=== PATIENT | female | born 1995 | race Caucasian/White ===

== ENCOUNTER 2021-10-23 17:35 | Emergency (ER) | payer MEDICAID ==
[~2021-10-23] VITALS: Ht 149.9 cm; Wt 82.0 kg
[2021-10-23] MEDS ORDERED: ONDANSETRON 4MG ODT PO ONE (22:15)
[2021-10-23 23:30] VITALS: BP 120/85
[2021-10-23] MEDS ORDERED: ONDA4TAB11 PO (23:32)
== END 2021-10-23 23:35 | disposition home or self-care (01) ==
LOC: ER 17:35
DX: B34.8 Other viral infections of unspecified site (principal); R50.9 Fever, unspecified; Z20.822 Contact with and (suspected) exposure to COVID-19
CPT/HCPCS: 81025; 87426; 99283; Q0162

== ENCOUNTER 2022-06-17 15:38 | Emergency (ER) | payer MEDICAID ==
[~2022-06-17] VITALS: Ht 149.9 cm; Wt 83.0 kg
[~2022-06-17 15:38] MED LIST: ONDA4TAB11 PO
[2022-06-17 15:56] VITALS: BP 131/70
[2022-06-17] MEDS ORDERED: ONDANSETRON HCL 4MG/2ML INJ IV STA (16:39)
[2022-06-17] MEDS ORDERED: MORPHINE SULFATE 4 MG/ML CPJ (NOT FOR IM USE) IV STA (16:39)
[2022-06-17] MEDS ORDERED: FAMOTIDINE 20MG/2ML VIAL IV STA (16:39)
[2022-06-17] MEDS ORDERED: SODIUM CHLORIDE 0.9% 1,000 ML IV ONE (16:45)
[2022-06-17 16:58] LABS: BASOPHILS % 0.7 % (0.0-2.0); EOSINOPHILS % 1.9 % (0.0-5.0); HEMATOCRIT. 39.5 % (36.0-48.0); HEMOGLOBIN. 13.4 g/dL (12.0-16.0); LYMPHOCYTES % 24.9 % (20.0-50.0); MEAN CORPUSCULAR HEMOGLOBIN 28.9 pg (28.0-32.0); MEAN CORPUSCULAR VOLUME 85.3 fL (81.0-99.0); MEAN PLATELET VOLUME 9.3 fl (7.4-10.4); MONOCYTES % 3.7 % (2.0-8.0); NEUTROPHILS % 68.8 % (40.0-76.0); PLATELET 259 x1000/uL (130-400); RED BLOOD CELL COUNT 4.63 mill/uL (4.2-5.4); RED CELL DISTRIBUTION WIDTH 13.4 % (11.6-14.6)
[2022-06-17 17:01] LABS: CHLORIDE 104 mEq/L (98-107)
[2022-06-17 17:16] LABS: HCG SCREEN NEGATIVE
[2022-06-17] MEDS ORDERED: FAMOTIDINE 20MG/2ML VIAL IV SCH (17:45)
[2022-06-17 18:09] LABS: CLARITY URINE CLEAR (CLEAR); COLOR URINE YELLOW (YELLOW); KETONES URINE 1+ (NEGATIVE); LEUKOCYTE ESTERASE URINE NEGATIVE (NEGATIVE); NITRITE URINE NEGATIVE (NEGATIVE); OCCULT BLOOD URINE NEGATIVE (NEGATIVE); PH URINE 6.5 (4.5-8.0); PROTEIN URINE NEGATIVE (NEGATIVE); SPECIFIC GRAVITY URINE 1.023 (1.005-1.030)
[2022-06-17] MEDS ORDERED: MAGNESIUM/ALUMINUM HYDROXIDE/SIMETHICONE 30ML UDC PO STA (20:36)
[2022-06-17] MEDS ORDERED: VISCOUS LIDOCAINE 2% 15 ML UDC PO STA (20:36)
[2022-06-17] MEDS ORDERED: TRAM50TA MT (20:39)
[2022-06-17] MEDS ORDERED: ONDA4TAB50 MT (20:39)
[2022-06-17] MEDS ORDERED: FAMO40TA70 MT (20:39)
== END 2022-06-17 21:47 | disposition home or self-care (01) ==
LOC: ER 15:38
DX: K76.0 Fatty (change of) liver, not elsewhere classified (principal)
CPT/HCPCS: 36415; 74176; 76705; 80053; 81003; 83690; 84703; 85025; 96361; 96374; 96375; 99284; J2270; J2405; J3490; J7030

== ENCOUNTER 2023-09-24 21:46 | Emergency (ER) | payer MEDICAID, OTHER ==
[~2023-09-24] VITALS: Ht 149.9 cm; Wt 84.0 kg
[~2023-09-24 21:46] MED LIST changes: +FAMO40TA70 MT; +ONDA4TAB50 MT; +TRAM50TA MT
[2023-09-24 21:50] VITALS: O2SAT 98
[2023-09-24] MEDS ORDERED: ONDANSETRON 4MG ODT PO STA (22:24)
[2023-09-24 23:01] LABS: BASOPHILS % 0.5 % (0.0-2.0); EOSINOPHILS % 1.5 % (0.0-5.0); HEMATOCRIT. 39.2 % (36.0-48.0); HEMOGLOBIN. 13.1 g/dL (12.0-16.0); LYMPHOCYTES % 35.6 % (20.0-50.0); MEAN CORPUSCULAR HEMOGLOBIN 28.5 pg (28.0-32.0); MEAN CORPUSCULAR HGB CONC 33.5 g/dL (31.0-37.0); MEAN PLATELET VOLUME 9.5 fl (7.4-10.4); MONOCYTES % 4.1 % (2.0-8.0); NEUTROPHILS % 58.3 % (40.0-76.0); PLATELET 276 x1000/uL (130-400); RED BLOOD CELL COUNT 4.61 mill/uL (4.2-5.4); RED CELL DISTRIBUTION WIDTH 13.7 % (11.6-14.6)
[2023-09-24 23:11] LABS: CLARITY URINE CLEAR (CLEAR); COLOR URINE YELLOW (YELLOW); GLUCOSE URINE NEGATIVE (NEGATIVE); KETONES URINE 1+ (NEGATIVE); PROTEIN URINE NEGATIVE (NEGATIVE)
[2023-09-24 23:12] LABS: LEUKOCYTE ESTERASE URINE 2+ (NEGATIVE); NITRITE URINE NEGATIVE (NEGATIVE); OCCULT BLOOD URINE NEGATIVE (NEGATIVE); UROBILINOGEN URINE 0.2 E.U./dL (0.2-1.0)
[2023-09-24 23:17] LABS: ALANINE AMINOTRANSFERASE 23 IU/L (10-49); ALBUMIN 4.5 g/dL (3.2-4.8); ASPARTATE AMINOTRANSFERASE 22 IU/L (<34); BILIRUBIN TOTAL 0.5 mg/dL (0.1-1.0); CALCIUM 9.6 mg/dL (8.7-10.4); CARBON DIOXIDE 27 mEq/L (21-32); CHLORIDE 103 mEq/L (98-107); CREATININE 0.8 mg/dL (0.6-1.0); GLUCOSE 154 mg/dL (70-105); POTASSIUM 3.3 mEq/L (3.5-5.1); PROTEIN TOTAL 7.3 g/dL (6.0-8.3); SODIUM 138 mEq/L (136-145); UREA NITROGEN BLOOD 10 mg/dL (9-23)
[2023-09-25] MEDS ORDERED: ONDANSETRON 4MG ODT PO STA (02:00)
[2023-09-25] MEDS ORDERED: MAGNESIUM/ALUMINUM HYDROXIDE/SIMETHICONE 30ML UDC PO STA (02:00)
[2023-09-25] MEDS ORDERED: DICYCLOMINE 10 MG/5 ML ORAL SYR PO STA (02:00)
[2023-09-25] MEDS ORDERED: DICY-18 MT (03:29)
[2023-09-25] MEDS ORDERED: ONDA4TAB50 MT (03:29)
[2023-09-25] MEDS ORDERED: KETOROLAC 60MG/2ML VIAL IM ONE (03:30)
[2023-09-25 03:46] VITALS: BP 106/44; PULSE 66; RESP 16; TEMP 98.7
[2023-09-25 07:30] LABS: RBC URINE 0-2 /hpf (0-2); SQUAMOUS EPITHELIAL CELL URINE FEW /lpf (RARE/1+)
[2023-09-25 07:31] LABS: BACTERIA URINE NONE SEEN
== END 2023-09-25 03:48 | disposition home or self-care (01) ==
LOC: ER 21:46
DX: R10.13 Epigastric pain (principal); R11.0 Nausea
CPT/HCPCS: 80053; 81003; 81025; 83690; 85025; 36415; 76705; 99285; 96372; Q0162 ×2; J1885; Z7610